=== PATIENT | female | born 1975 | race Two or more races ===

== ENCOUNTER 2021-07-16 17:59 | Emergency (ER) | payer OTHER ==
[~2021-07-16] VITALS: Ht 149.9 cm; Wt 66.7 kg
== END 2021-07-16 22:04 | disposition home or self-care (01) ==
LOC: ER 17:59
DX: R42 Dizziness and giddiness (principal); R51.9 Headache, unspecified; R00.2 Palpitations; Z20.822 Contact with and (suspected) exposure to COVID-19; E16.1 Other hypoglycemia

== ENCOUNTER 2022-09-03 20:31 | Emergency (ER) | payer OTHER ==
[~2022-09-03] VITALS: Ht 149.9 cm; Wt 66.2 kg
[2022-09-04] MEDS ORDERED: PREVACID30 MG PO (00:40)
[2022-09-04] MEDS ORDERED: PEPCID AC20 MG PO (00:40)
== END 2022-09-04 01:29 ==
LOC: ER 20:31
DX: K21.9 Gastro-esophageal reflux disease without esophagitis (principal); J31.2 Chronic pharyngitis